=== PATIENT | female | born 1965 | race Caucasian/White ===

== ENCOUNTER 2017-09-15 12:51 | Emergency (ER) | payer OTHER ==
[~2017-09-15] VITALS: Ht 157.5 cm; Wt 95.2 kg
[~2017-09-15 12:51] MED LIST: "\\\"WATER PILL\\\""; ALBIPROI INH; ALBU90I INH; ALBU90OI INH; AMOCLA875 PO; ASPI81CH PO; ASPI81EC PO; AZIT250 PO; CARV25 PO; CARV3.125 PO; CEPH500 PO; Ceftriaxone2 G1 IV; Cubicin500 MG/VIA IV; FAMO20 PO; FURO20; FURO20 PO; HYDACE10B PO; HYDACE5 PO; HYDMOR2; IBUP800 PO; LAVAP17G; LEVSOD125 PO; LIDO5TP; LISI5 PO; METPRE4DP PO; Micro-K10 MEQ PO; NEBI10; NEBI10 PO; OMEP20ER; OMEP20ER PO; ONDA4ODT PO; ONDA8 PO; OXYACE5T PO; OXYACE7.5T PO; PANT40 PO; POTA20PAC; PRED20 PO; PROM25 PO; Percocet 10-321 EACH PO; Percocet 5-3251 EACH PO; Prednisone20 MG PO; Prilosec20 MG PO; RANI150 PO; SENN187; SUCR1 PO; SULTRIDS PO; THYROXINE PO; TRAM50 PO; Zithromax250 MG PO; Zofran8 MG PO
[2017-09-15] MEDS ORDERED: LEVO-T25 MCG PO (13:41)
[2017-09-15] MEDS ORDERED: Ventolin/Prove6.7 GM INH (13:42)
[2017-09-15] MEDS ORDERED: Bystolic20 MG PO (13:43)
[2017-09-15] MEDS ORDERED: BENZ100A PO (14:24)
[2017-09-15] MEDS ORDERED: ALBU90OI INH (14:25)
== END 2017-09-15 14:46 | disposition home or self-care (01) ==
LOC: ER 12:51
DX: J11.1 Influenza due to unidentified influenza virus with other respiratory manifestations (principal); E03.9 Hypothyroidism, unspecified; E78.5 Hyperlipidemia, unspecified; J45.909 Unspecified asthma, uncomplicated; F17.200 Nicotine dependence, unspecified, uncomplicated; Z88.1 Allergy status to other antibiotic agents; Z88.2 Allergy status to sulfonamides; Z88.5 Allergy status to narcotic agent; Z88.8 Allergy status to other drugs, medicaments and biological substances; Z79.899 Other long term (current) drug therapy; Z79.82 Long term (current) use of aspirin; Z79.52 Long term (current) use of systemic steroids; Z90.49 Acquired absence of other specified parts of digestive tract
CPT/HCPCS: 71046; 99283

== ENCOUNTER → 2018-05-10 | Outpatient (CLI) | payer OTHER ==
[~2018-05-10] MED LIST changes: +BENZ100A PO; +Bystolic20 MG PO; +LEVO-T25 MCG PO; +Ventolin/Prove6.7 GM INH
[2018-05-10 13:44] LABS: BASOPHILS ABSOLUTE AUTO 0.05 K/mm3 (0.00-0.23); BASOPHILS PERCENT AUTO 1 % (0-2); EOSINOPHILS ABSOLUTE AUTO 0.29 K/mm3 (0.00-0.68); EOSINOPHILS PERCENT AUTO 3 % (0-6); Hematocrit 43.5 % (33.0-51.0); Hemoglobin 14.2 g/dL (11.5-16.0); IMMATURE GRAN ABSOLUTE AUTO 0.01 K/mm3 (0.00-0.10); IMMATURE GRAN PERCENT AUTO 0 % (0-1); LYMPHOCYTES ABSOLUTE AUTO 1.89 K/mm3 (0.84-5.20); LYMPHOCYTES PERCENT AUTO 22 % (21-46); MONOCYTES PERCENT AUTO 7 % (4-13); Mean Corpuscular HGB 27.7 pg (26.0-34.0); Mean Corpuscular HGB Conc 32.6 g/dL (31.5-36.5); Mean Corpuscular Volume 85 fL (80-100); Mean Platelet Volume 11.6 fL (9.1-12.4); NEUTROPHILS ABSOLUTE AUTO 5.78 K/mm3 (1.96-9.15); NEUTROPHILS PERCENT AUTO 67 % (41-73); Platelet Count 143 K/mm3 (150-400); RDW Coefficient Variation 14.2 % (11.7-14.2); RDW Standard Deviation 43.7 fL (35.1-46.3); Red Blood Cell Count 5.13 M/mm3 (3.80-5.20); White Blood Cell Count 8.62 K/mm3 (4.00-11.30)
== END ==
LOC: LAB SHORT 13:39 → LAB EV 13:39
PROVIDERS: Physician Assistant Surgical
DX: M54.12 Radiculopathy, cervical region (principal)
CPT/HCPCS: 85025; 85651; 86140

== ENCOUNTER → 2020-10-14 | Outpatient (CLI) | payer OTHER | END | disposition home or self-care (01) | LOC: LAB 14:00 → LAB SHORT 14:00 | DX: J02.9 Acute pharyngitis, unspecified (principal) | CPT/HCPCS: 87081 ==

== ENCOUNTER 2021-10-02 13:45 | Emergency (ER) | payer MEDICARE, OTHER ==
[~2021-10-02] VITALS: Ht 157.5 cm; Wt 90.3 kg
[2021-10-02 14:20] LABS: BASOPHILS ABSOLUTE AUTO 0.03 K/mm3 (0.00-0.23); BASOPHILS PERCENT AUTO 0 % (0-2); EOSINOPHILS ABSOLUTE AUTO 0.23 K/mm3 (0.00-0.68); EOSINOPHILS PERCENT AUTO 3 % (0-6); Hematocrit 44.7 % (33.0-51.0); Hemoglobin 14.3 g/dL (11.5-16.0); IMMATURE GRAN ABSOLUTE AUTO 0.02 K/mm3 (0.00-0.10); IMMATURE GRAN PERCENT AUTO 0 % (0-1); LYMPHOCYTES ABSOLUTE AUTO 2.42 K/mm3 (0.84-5.20); LYMPHOCYTES PERCENT AUTO 27 % (21-46); MONOCYTES ABSOLUTE AUTO 0.79 K/mm3 (0.16-1.47); MONOCYTES PERCENT AUTO 9 % (4-13); Mean Corpuscular HGB 27.7 pg (26.0-34.0); Mean Corpuscular Volume 87 fL (80-100); Mean Platelet Volume 10.8 fL (9.1-12.4); NEUTROPHILS ABSOLUTE AUTO 5.45 K/mm3 (1.96-9.15); NEUTROPHILS PERCENT AUTO 61 % (41-73); Platelet Count 156 K/mm3 (150-400); RDW Coefficient Variation 13.6 % (11.7-14.2); RDW Standard Deviation 42.9 fL (35.1-46.3); Red Blood Cell Count 5.16 M/mm3 (3.80-5.20); White Blood Cell Count 8.94 K/mm3 (4.00-11.30)
[2021-10-02 14:39] LABS: Alanine Aminotransfer (ALT/SGP 34 U/L (12-78); Albumin, Blood 3.5 g/dL (3.4-5.0); Albumin/Globulin Ratio 0.9 (0.8-1.8); Alk Phos 82 U/L (50-136); Anion Gap 5 mmol/L (6-16); Aspartate Aminotrans (AST/SGOT 28 U/L (12-37); Bilirubin, Total 0.5 mg/dL (0.1-1.0); Blood Urea Nitrogen 13 mg/dL (8-24); Bun/Creatinine Ratio 19.7 (12.0-20.0); CO2, Blood 30 mmol/L (21-32); Calcium, Blood 9.2 mg/dL (8.5-10.1); Chloride, Blood 106 mmol/L (98-108); Creatinine, Blood 0.66 mg/dL (0.40-1.00); Glomerular Filtration Rate >60 (60-); Glucose, Blood 88 mg/dL (70-99); Potassium, Blood 4.2 mmol/L (3.5-5.5); Sodium, Blood 141 mmol/L (136-145); Total Protein, Blood 7.5 g/dL (6.4-8.2)
[2021-10-02 14:42] LABS: Troponin I <0.015 ng/mL (0.000-0.040)
== END 2021-10-02 17:20 | disposition home or self-care (01) ==
LOC: ER 13:45
PROVIDERS: Physician Assistant
DX: R00.2 Palpitations (principal); F17.210 Nicotine dependence, cigarettes, uncomplicated; J45.909 Unspecified asthma, uncomplicated; E78.00 Pure hypercholesterolemia, unspecified; Z79.82 Long term (current) use of aspirin; Z79.899 Other long term (current) drug therapy; Z88.5 Allergy status to narcotic agent; Z88.2 Allergy status to sulfonamides; Z88.1 Allergy status to other antibiotic agents
CPT/HCPCS: 36415; 71046; 80053; 83880; 84484; 85025; 93005; 93010; 93242; 99285-25

== ENCOUNTER 2021-10-05 20:25 | Emergency (ER) | payer MEDICARE, OTHER ==
[~2021-10-05] VITALS: Ht 157.5 cm; Wt 90.3 kg
[2021-10-05] MEDS ORDERED: VITAMIN D5000 UNIT PO (21:11)
[2021-10-05] MEDS ORDERED: CO Q-10100 MG PO (21:12)
[2021-10-05] MEDS ORDERED: FURO20 PO (21:12)
[2021-10-05] MEDS ORDERED: MERIBIN5 MG PO (21:13)
[2021-10-05] MEDS ORDERED: ONE DAILY MUL400 MCG PO (21:13)
[2021-10-05] MEDS ORDERED: FISH OIL 1,2001 EAC7 PO (21:13)
[2021-10-05] MEDS ORDERED: PROBIOTIC1 EA13 PO (21:13)
[2021-10-05] MEDS ORDERED: DOXY100 PO (21:14)
[2021-10-05] MEDS ORDERED: COLLAGEN 15001 EACH PO (21:14)
[2021-10-05] MEDS ORDERED: CLARITIN-D 121 EAC1 PO (21:14)
[2021-10-05] MEDS ORDERED: PERCOCET 10-321 EAC1 (21:15)
[2021-10-05 21:16] LABS: BASOPHILS ABSOLUTE AUTO 0.04 K/mm3 (0.00-0.23); BASOPHILS PERCENT AUTO 0 % (0-2); EOSINOPHILS ABSOLUTE AUTO 0.22 K/mm3 (0.00-0.68); EOSINOPHILS PERCENT AUTO 2 % (0-6); Hematocrit 43.1 % (33.0-51.0); Hemoglobin 14.4 g/dL (11.5-16.0); IMMATURE GRAN ABSOLUTE AUTO 0.03 K/mm3 (0.00-0.10); IMMATURE GRAN PERCENT AUTO 0 % (0-1); LYMPHOCYTES ABSOLUTE AUTO 2.31 K/mm3 (0.84-5.20); LYMPHOCYTES PERCENT AUTO 20 % (21-46); MONOCYTES ABSOLUTE AUTO 0.76 K/mm3 (0.16-1.47); MONOCYTES PERCENT AUTO 7 % (4-13); Mean Corpuscular HGB 28.2 pg (26.0-34.0); Mean Corpuscular HGB Conc 33.4 g/dL (31.5-36.5); Mean Corpuscular Volume 84 fL (80-100); Mean Platelet Volume 10.9 fL (9.1-12.4); NEUTROPHILS ABSOLUTE AUTO 8.39 K/mm3 (1.96-9.15); NEUTROPHILS PERCENT AUTO 71 % (41-73); Platelet Count 159 K/mm3 (150-400); RDW Coefficient Variation 13.4 % (11.7-14.2); RDW Standard Deviation 41.4 fL (35.1-46.3); Red Blood Cell Count 5.11 M/mm3 (3.80-5.20); White Blood Cell Count 11.75 K/mm3 (4.00-11.30)
[2021-10-05 21:37] LABS: Alanine Aminotransfer (ALT/SGP 35 U/L (12-78); Albumin, Blood 3.4 g/dL (3.4-5.0); Albumin/Globulin Ratio 0.8 (0.8-1.8); Alk Phos 85 U/L (50-136); Anion Gap 5 mmol/L (6-16); Aspartate Aminotrans (AST/SGOT 28 U/L (12-37); Bilirubin, Total 0.2 mg/dL (0.1-1.0); Blood Urea Nitrogen 16 mg/dL (8-24); CO2, Blood 29 mmol/L (21-32); Calcium, Blood 9.2 mg/dL (8.5-10.1); Chloride, Blood 106 mmol/L (98-108); Creatinine, Blood 0.73 mg/dL (0.40-1.00); Glomerular Filtration Rate >60 (60-); Glucose, Blood 166 mg/dL (70-99); Potassium, Blood 4.4 mmol/L (3.5-5.5); Sodium, Blood 140 mmol/L (136-145); Total Protein, Blood 7.4 g/dL (6.4-8.2); Troponin I <0.015 ng/mL (0.000-0.040)
== END 2021-10-05 22:55 | disposition left against medical advice (07) ==
LOC: ER 20:25
PROVIDERS: Physician Assistant
DX: R00.2 Palpitations (principal); J45.909 Unspecified asthma, uncomplicated; K21.9 Gastro-esophageal reflux disease without esophagitis; F17.210 Nicotine dependence, cigarettes, uncomplicated; E03.9 Hypothyroidism, unspecified; J42 Unspecified chronic bronchitis; D50.9 Iron deficiency anemia, unspecified; Z79.82 Long term (current) use of aspirin; Z88.0 Allergy status to penicillin; Z79.899 Other long term (current) drug therapy; Z88.2 Allergy status to sulfonamides; Z88.1 Allergy status to other antibiotic agents; Z88.8 Allergy status to other drugs, medicaments and biological substances
CPT/HCPCS: 36415; 71046; 80053; 83880; 84484; 85025; 93005; 93010; 99285-25

== ENCOUNTER → 2022-01-02 | Outpatient (CLI) | payer MEDICARE, OTHER ==
[~2022-01-02] MED LIST changes: +CLARITIN-D 121 EAC1 PO; +CO Q-10100 MG PO; +COLLAGEN 15001 EACH PO; +DOXY100 PO; +FISH OIL 1,2001 EAC7 PO; +MERIBIN5 MG PO; +ONE DAILY MUL400 MCG PO; +PERCOCET 10-321 EAC1 PO; +PROBIOTIC1 EA13 PO; +VITAMIN D5000 UNIT PO
== END | disposition home or self-care (01) ==
LOC: LAB SHORT 12:00
DX: M54.50 Low back pain, unspecified (principal); R30.0 Dysuria
CPT/HCPCS: 87086

== ENCOUNTER 2022-01-08 07:05 | Day surgery (SDC) | payer MEDICARE, OTHER ==
[~2022-01-08] VITALS: Ht 157.5 cm; Wt 90.0 kg
[2022-01-08] MEDS ORDERED: NITR.4SL SL (07:42)
--- NOTE | 2022-01-08 10:13 | NUR ---
2cc REMOVED FROM TR BAND. NO BLEEDING NOTED. TISSUE AROUND BAND SOFT AND NON-TENDER. PT SITTING UP IN RECLINER DRINKING COFFEE AND USING CELL PHONE.
--- NOTE | 2022-01-08 10:22 | NUR ---
2cc REMOVED FROM TR BAND. NO BLEEDING NOTED. TISSUE AROUND BAND SOFT AND NON-TENDER.
--- NOTE | 2022-01-08 10:34 | NUR ---
3cc TAKEN FROM TR BAND. NO BLEEDING NOTED. TISSUE AROUND BAND SOFT AND NON-TENDER.
--- NOTE | 2022-01-08 10:39 | NUR ---
TR BAND FULLY DEFLATED. NO BLEEDING NOTED. TISSUE AROUND BAND SOFT AND NON-TENDER.
--- NOTE | 2022-01-08 10:52 | NUR ---
PT CHANGED INTO PERSONAL CLOTHES. PT AMBULATED TO RESTROOM.
--- NOTE | 2022-01-08 11:15 | NUR ---
PT GIVEN DC INTRUCTIONS AND VERBALIZED UNDERSTANDING. IV OUT W/ CATH INTACT. CLOT DOT PLACED TO R RADIAL ACCESS SITE. NO BLEEDING NOTED TO R RADIAL ACCESS SITE. SITE SOFT AND NON-TENDER. PT TO RECEIVE RIDE HOME FROM DAUGHTER. PT TAKENT TO LBY VIA WC WHERE DAUGHTER WILL EXHIBIT ELECTRICIAN PT.
== END 2022-01-08 11:15 | disposition home or self-care (01) ==
LOC: MHTC 07:05
DX: I42.8 Other cardiomyopathies (principal); I25.10 Atherosclerotic heart disease of native coronary artery without angina pectoris; I25.9 Chronic ischemic heart disease, unspecified; I47.2 Ventricular tachycardia; I11.9 Hypertensive heart disease without heart failure; F17.210 Nicotine dependence, cigarettes, uncomplicated; J44.9 Chronic obstructive pulmonary disease, unspecified; E03.9 Hypothyroidism, unspecified; E66.9 Obesity, unspecified; Z68.39 Body mass index [BMI] 39.0-39.9, adult; Z82.49 Family history of ischemic heart disease and other diseases of the circulatory system; Z88.1 Allergy status to other antibiotic agents; Z88.8 Allergy status to other drugs, medicaments and biological substances
CPT/HCPCS: 93454; 99152; 99153; C1769; C1894; J1644; J2250; J3010; J7030; Q9967

== ENCOUNTER → 2023-10-09 | Outpatient (CLI) | payer MEDICARE, OTHER ==
[~2023-10-09] MED LIST changes: +NITR.4SL SL
[2023-10-10 12:24] LABS: Candida species (DNA Probe) Negative (NEGATIVE); G. vaginalis (DNA Probe) Negative (NEGATIVE); T. vaginalis (DNA Probe) Negative (NEGATIVE)
== END ==
LOC: LAB 17:36 → LAB SHORT 17:36
PROVIDERS: Student in an Organized Health Care Education/Training Program
DX: N89.8 Other specified noninflammatory disorders of vagina (principal); R30.0 Dysuria
CPT/HCPCS: 87086; 87480; 87510; 87660